=== PATIENT | female | born 1960 | race Caucasian/White ===

== ENCOUNTER → 2020-02-21 09:56 | Outpatient (CLI) | payer OTHER, SELFPAY ==
--- NOTE | 2020-02-21 09:57 | BI_ITS ---
MAMMOGRAPHY - BILATERAL SCREENING REASON FOR EXAM: Female, 59 years old. Routine annual screening examination. PERTINENT HISTORY: Non-contributory. TECHNIQUE: Digital bilateral breast benjy (3D mammographic acquisition) in the CC and MLO projections. 2-D mediolateral oblique (MLO) and craniocaudad (CC) views of both breasts were obtained. CAD: Full Field Digital Mammography with Computer Added Detection was performed. COMPARISON: Comparison is made with prior examination 09/01/2018. FINDINGS: Breast Composition: There are scattered areas of fibroglandular density. There are no dominant masses or suspicious calcifications. No other significant abnormalities are identified. There has been no significant change since the prior study. BI/SCREEN MAMM (CAD) W/BENJY BILAT IMPRESSION: Stable bilateral screening mammogram. Yearly follow-up mammogram recommended. (A) ASSESSMENT CATEGORY: BIRADS Category 1: Negative. A letter regarding these results will be sent to the patient by the facility within 30 days. Approximately 10% of breast cancers are not detected by mammography. A normal mammogram should not delay biopsy of a clinically suspicious abnormality. [id number] Electronically Signed: Rodo Lopez, at 12:12 EDT , Service support ,
[2020-02-28 08:44] LABS: HPV APTIMA, High Risk Negative (Negative)
== END ==
PROVIDERS: PCP Family Medicine; Referring Provider Obstetrics & Gynecology; Visit Provider Obstetrics & Gynecology
DX: Z12.31 Encounter for screening mammogram for malignant neoplasm of breast (principal); Z12.4 Encounter for screening for malignant neoplasm of cervix
CPT/HCPCS: 77063; 77067; 87624; 88175; G0145

== ENCOUNTER → 2021-03-10 15:39 | Outpatient (CLI) | payer OTHER, SELFPAY ==
[2020-02-21 11:01] VITALS: BMI 33.2
--- NOTE | 2021-03-10 15:41 | BI_ITS ---
MAMMOGRAPHY - BILATERAL SCREENING REASON FOR EXAM: Female, 60 years old. Routine annual screening examination. PERTINENT HISTORY: Non-contributory. TECHNIQUE: Digital bilateral breast benjy (3D mammographic acquisition) in the CC and MLO projections. 2-D mediolateral oblique (MLO) and craniocaudad (CC) views of both breasts were obtained. CAD: Full Field Digital Mammography with Computer Added Detection was performed. COMPARISON: Comparison is made with prior study dated 02/21/2020. FINDINGS: Breast Composition: There are scattered areas of fibroglandular density. There are no dominant masses or suspicious calcifications. There is a 1.3 cm x 1.2 cm well-defined nodular density in the deep slightly upper lateral aspect of the right breast. Correlation with ultrasound is recommended. No other significant abnormalities are identified. BI/SCRN MAMM (CAD)W/BENJY BILAT IMPRESSION: 1.3 cm x 1.2 cm well-defined nodular density in the deep slightly upper lateral aspect of the right breast. Correlation with ultrasound is recommended. ASSESSMENT CATEGORY: BIRADS Category 0: Incomplete. Need additional imaging evaluation. A letter regarding these results will be sent to the patient by the facility within 30 days. Approximately 10% of breast cancers are not detected by mammography. A normal mammogram should not delay biopsy of a clinically suspicious abnormality. [id number] Electronically Signed: Rodo Lopez MD at 8:56 EST , Service support ,
== END ==
PROVIDERS: PCP Family Medicine; Referring Provider Obstetrics & Gynecology; Visit Provider Obstetrics & Gynecology
DX: Z12.31 Encounter for screening mammogram for malignant neoplasm of breast (principal)
CPT/HCPCS: 77063; 77067

== ENCOUNTER → 2021-03-19 09:06 | Outpatient (CLI) | payer OTHER, SELFPAY ==
--- NOTE | 2021-03-19 09:06 | US_ITS ---
STUDY: ULTRASOUND BREAST - RIGHT REASON FOR EXAM: Female, 60 years old. Abnormal screening mammogram. TECHNIQUE: Axial and longitudinal images of the RIGHT breast were performed with a high resolution ultrasound transducer. # OF IMAGES: 14 COMPARISON: Comparison is made with prior mammogram dated 03/10/2021. FINDINGS: RIGHT Breast: There is a 0.6 cm x 1.1 cm x 0.4 cm cyst at the 9 o''clock position of the breast at 4 cm from nipple. This also evidence of a 5 mm x 7 mm x 5 mm cyst at the 9 o''clock position of the breast at 2 cm from nipple. US/Breast Limited Unilateral IMPRESSION: 2 small cysts are seen at the 9 o''clock position of the breast as described. Routine mammographic follow-up is recommended. ASSESSMENT CATEGORY: BIRADS Category 2: Benign. A letter regarding these results will be sent to the patient by the facility within 30 days. Electronically Signed: Rodo Lopez MD at 10:46 EST , Service support ,
== END ==
PROVIDERS: PCP Family Medicine; Visit Provider Obstetrics & Gynecology
DX: N60.01 Solitary cyst of right breast (principal)
CPT/HCPCS: 76642

== ENCOUNTER → 2022-03-18 | Outpatient (CLI) | payer OTHER, SELFPAY ==
--- NOTE | 2022-03-18 08:56 | BI_ITS ---
MAMMOGRAPHY - BILATERAL SCREENING REASON FOR EXAM: Female, 61 years old. Routine annual screening examination. PERTINENT HISTORY: Non-contributory. TECHNIQUE: Digital bilateral breast benjy (3D mammographic acquisition) in the CC and MLO projections. 2-D mediolateral oblique (MLO) and craniocaudad (CC) views of both breasts were obtained. CAD: Full Field Digital Mammography with Computer Added Detection was performed. COMPARISON: Comparison is made with prior examination dated 03/10/2021 and 02/21/2020. FINDINGS: Breast Composition: There are scattered areas of fibroglandular density. Stable 1.3 cm x 1.2 cm well-defined nodule in the deep slightly upper lateral aspect of the right breast. Prior sonogram demonstrated this to be a small cyst. There are no dominant masses or suspicious calcifications. No other significant abnormalities are identified. There has been no significant change since the prior study. BI/SCRN MAMM (CAD)W/BENJY BILAT IMPRESSION: Stable bilateral screening mammogram. Yearly follow-up mammogram recommended. (A) ASSESSMENT CATEGORY: BIRADS Category 2: Benign. A letter regarding these results will be sent to the patient by the facility within 30 days. Approximately 10% of breast cancers are not detected by mammography. A normal mammogram should not delay biopsy of a clinically suspicious abnormality. [id number] Electronically Signed: Rodo Lopez MD at 10:22 [facility] ,
== END | disposition home or self-care (01) ==
LOC: OPBI 08:55
PROVIDERS: PCP Family Medicine; Visit Provider Obstetrics & Gynecology
DX: Z12.31 Encounter for screening mammogram for malignant neoplasm of breast (principal)
CPT/HCPCS: 77063; 77067

== ENCOUNTER → 2023-04-08 | Outpatient (CLI) | payer OTHER, SELFPAY ==
--- NOTE | 2023-04-08 13:56 | BI_ITS ---
MAMMOGRAPHY - BILATERAL SCREENING REASON FOR EXAM: Female, 62 years old. Routine annual screening examination. PERTINENT HISTORY: Non-contributory. TECHNIQUE: Digital bilateral breast benjy (3D mammographic acquisition) in the CC and MLO projections. 2-D mediolateral oblique (MLO) and craniocaudad (CC) views of both breasts were obtained. CAD: Full Field Digital Mammography with Computer Added Detection was performed. COMPARISON: Comparison is made with prior study dated March 18, 2022 and March 10, 2021. FINDINGS: Breast Composition: There are scattered areas of fibroglandular density. There are no dominant masses or suspicious calcifications. Stable 1.2 cm x 1.3 cm well-defined nodule in the deep slightly upper lateral aspect of the right breast. Prior sonogram demonstrated this to be a small cyst. Stable fat-containing bilateral axillary lymph nodes. No other significant abnormalities are identified. There has been no significant change since the prior study. BI/SCRN MAMM (CAD)W/BENJY BILAT IMPRESSION: Stable bilateral screening mammogram. Yearly follow-up mammogram recommended. (A) ASSESSMENT CATEGORY: BIRADS Category 2: Benign. A letter regarding these results will be sent to the patient by the facility within 30 days. Approximately 10% of breast cancers are not detected by mammography. A normal mammogram should not delay biopsy of a clinically suspicious abnormality. [id number] Electronically Signed: Rodo Lopez MD at 15:12 EST ,
== END | disposition home or self-care (01) ==
LOC: OPBI 13:52
PROVIDERS: PCP Family Medicine; Referring Provider Obstetrics & Gynecology; Visit Provider Obstetrics & Gynecology
DX: Z12.31 Encounter for screening mammogram for malignant neoplasm of breast (principal)
CPT/HCPCS: 77063; 77067

== ENCOUNTER → 2024-04-20 | Outpatient (CLI) | payer OTHER, SELFPAY ==
--- NOTE | 2024-04-20 09:41 | BI_ITS ---
MAMMOGRAPHY - BILATERAL SCREENING REASON FOR EXAM: Female, 63 years old. Routine annual screening examination. PERTINENT HISTORY: Non-contributory. TECHNIQUE: Digital bilateral breast benjy (3D mammographic acquisition) in the CC and MLO projections. 2-D mediolateral oblique (MLO) and craniocaudad (CC) views of both breasts were obtained. CAD: Full Field Digital Mammography with Computer Added Detection was performed. COMPARISON: Comparison is made with prior study dated April 08, 2023 and March 18, 2022. FINDINGS: Breast Composition: There are scattered areas of fibroglandular density. There are no dominant masses or suspicious calcifications. Stable 1 cm x 1.2 cm well-defined nodule in the deep slightly upper lateral aspect of the right breast. No other significant abnormalities are identified. There has been no significant change since the prior study. BI/SCRN MAMM (CAD)W/BENJY BILAT IMPRESSION: Stable bilateral screening mammogram. Yearly follow-up mammogram recommended. (A) ASSESSMENT CATEGORY: BIRADS Category 2: Benign. A letter regarding these results will be sent to the patient by the facility within 30 days. Approximately 10% of breast cancers are not detected by mammography. A normal mammogram should not delay biopsy of a clinically suspicious abnormality. [id number] Electronically Signed: Rodo Lopez MD at 11:33 EST ,
[2024-04-29 10:06] LABS: HPV APTIMA, High Risk Negative (Negative)
== END | disposition home or self-care (01) ==
LOC: OPBI 09:41
PROVIDERS: PCP Family Medicine; Referring Provider Obstetrics & Gynecology; Visit Provider Obstetrics & Gynecology
DX: Z12.31 Encounter for screening mammogram for malignant neoplasm of breast (principal)
CPT/HCPCS: 77063; 77067; 87624; 88175; G0145

== ENCOUNTER 2024-08-15 05:54 | Day surgery (SDC) | payer BC, SELFPAY ==
[2024-08-15] VITALS (8 sets, daily range): BP systolic 121–148; BP diastolic 46–96; PULSE 64–86; RESP 16; TEMP 36.5–36.8; O2SAT 96–98; BMI 33.8
--- NOTE | 2024-08-15 06:37 | PCM.PRE.AN2 ---
ASA Classification* ASA Classification ASA Classification: 2 Assessment & Plan Anesthesia* Anesthesia Assessment Anesthesia Assessment: Discussed sedation and/or anesthesia options, risks, benefits, and alternatives with patient/parents/legal guardian/POA. Questions invited. The patient/parents/legal guardian/POA seems to understand and agrees to proceed with anesthesia plan. Reviewed the physical assessment, medical history, allergy history and patient home medications list prior to surgery/procedure/anesthetic and documented any changes. Performed airway and anesthesia risk assessments. Anesthesia Type Anesthesia Type: MAC Anesthesia Focused Assessment* Temperature: 98.3 F Pulse Rate: 86 Blood Pressure: 138/96 Respiratory Rate: 16 Pulse Ox: 96 Airway Assessment Mouth opens: >3 cm Mallampati Score: II Focused Labs Anesthesia Preop lab: CBC CHEMISTRY COAG Pre-Assessment Diagnosis/Proposed Procedure Planned Operative Procedure(s): Colonoscopy - Open Access Anesthesia History Anesthesia History - training director: Anesthesia History - training director Hx Hospitalization No 08/10/24 15:14 Any Problems With Anesthesia No 08/10/24 15:14 Cholinesterase deficiency No 08/10/24 15:14 You/Your Family Experience No 08/10/24 15:14 fever (hyperthermia) with Relationship Recent Exposure to Contagious No 08/15/24 06:18 Disease Does patient have nerve No 08/10/24 15:14 stimulator Patient instructed to have device shut off --Does patient have Pacemaker No 08/15/24 06:18 or ICD? When Was Last Pacemaker Check QUESTION #4 FULL TEXT: You/Your Family Experience fever (hyperthermia) with Anesthesia Last Oral Intake Last Oral intake: Last Oral Intake NPO since 03:00 08/15/24 06:18 Meds taken in AM with sips of No 08/15/24 06:18 water? Meds patient instructed to take am of surgery PONV PONV - training director: PONV - training director Female Yes 08/10/24 15:14 HX of Motion Sickness No 08/10/24 15:14 HX of N/V After Surgery No 08/10/24 15:14 Non-Smoker Yes 08/10/24 15:14 Duration of Surgery greater No 08/10/24 15:14 than 60 minutes Number of Risk Factors 2 08/10/24 15:14 PONV Score Moderate Risk 08/10/24 15:14 Height & Weight Height & Weight: Anesthesia: Height & Weight Height 5 ft 7 in 08/15/24 06:18 Weight: 98 kg 08/15/24 06:18 Body Mass Index (BMI) 33.8 08/15/24 06:18 Respiratory Assessment Respiratory Assessment - training director: Respiratory Tract Infection Hx - training director Hx Respiratory Tract Infection No 08/10/24 15:14 STOP Sleep Apnea STOP Sleep Apnea - training director: STOP Sleep Apnea - training director Hx Hypertension Yes 08/10/24 15:14 Hx Sleep Apnea No 08/10/24 15:14 CPAP BIPAP Do you snore loudly (louder No 08/10/24 15:14 than talking or can be heard Do you often feel tired/ No 08/10/24 15:14 fatigued/ sleepy during daytime? Has anyone observed you stop No 08/10/24 15:14 breathing during sleep? STOP Results Negative 08/10/24 15:14 QUESTION #5 FULL TEXT : Do you snore loudly (louder than talking or can be heard through closed doors)? 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 Specify any problems Hx of Preganancy in last 3 No 08/10/24 15:14 Months Nurse Filling Out Transfusion JZOLLINGE 08/10/24 15:14 & Questions: Date: 08/10/24 08/10/24 15:14 Time: 15:16 08/10/24 15:14 Patient unable to answer at this time (ie. confused, unrespo /Reproduction History /Reproductive History - training director: /Reproductive Hx- training director Hx Now No 08/10/24 15:14 Gestational Age (in weeks): EDC: Hx Hx Para Hx Section SAB No 08/10/24 15:14 PFSH Medical History Wears glasses Heartburn Non-smoker Pre-diabetes Hypertension Vitamin D deficiency Thyroid cancer Asthma Home Medications ?Medication ?Instructions ?Recorded ?Last Taken ?Type albuterol sulfate 90 mcg/actuation 2 puff inhalation Q6H PRN 02/21/20 08/13/24 History aerosol inhaler (Proventil HFA) shortness of breath or wheezing calcium carbonate 600 mg PO DAILY 02/21/20 08/14/24 History cetirizine 10 mg tablet (Zyrtec) 10 mg PO DAILY 02/21/20 08/14/24 History cholecalciferol (vitamin D3) 125 125 mcg PO DAILY 02/21/20 08/14/24 History mcg (5,000 unit) capsule levothyroxine 100 mcg tablet 100 mcg PO DAILY 02/21/20 08/14/24 History vitamin E 268 mg (400 unit) capsule 400 unit PO DAILY 02/21/20 08/14/24 History lisinopril 10 1 tab PO DAILY 03/18/22 08/14/24 History mg-hydrochlorothiazide 12.5 mg tablet ascorbic acid (vitamin C) 500 mg 1,000 mg PO 04/08/23 08/14/24 History capsule Lactobacillus acidophilus 600 mg PO QDAY 07/12/24 08/14/24 History fluticasone propionate 50 1 spray intranasal QDAY 07/12/24 Unknown History mcg/actuation nasal spray,suspension (Allergy Relief (fluticasone)) magnesium glycinate 100 mg PO QDAY 07/12/24 08/12/24 History omega-3 fatty acids-fish oil 360 1 cap PO QDAY 07/12/24 Unknown History mg-1,200 mg capsule (Fish Oil) Allergy/AdvReac Type Severity Reaction Status Date / Time Penicillins Allergy Mild hives, Verified 08/15/24 06:15 swelling meperidine (From Demerol) AdvReac Mild TROUBLE Verified 08/15/24 06:15 COMING OUT OF IT Family History Mother Hypertension Father Hypertension Diabetes Surgical History Hx of colonoscopy S/P partial thyroidectomy S/P tonsillectomy Social History household members: spouse current occupational status: employed Smoking Status: Never smoker alcohol intake: current details: occasionally substance use type: does not use caffeine: Yes what type of physical activity do you participate in: none seatbelt use: always do you feel safe at home: Yes additional social history: -[employer] Patient works at [employer] Review of Systems (Anesthesia) ROS Narrative System reviewed and no additional complaints, except as documented.
--- NOTE | 2024-08-15 06:47 | PCM.HP.STD ---
HPI - General General Date of Admission: 08/15/24 Date of Service: 08/15/24 Chief Complaint: Screening colonoscopy HPI Narrative AUTUMN AGUIRRE, is a 63 F who presents for screening colonoscopy. She had a colonoscopy proximately 10 years ago and it was normal. She is not have any abdominal pain, cramping, chest pain or shortness of breath. Overall she is in very good health. [facility]LY [facility] Medical History Wears glasses Heartburn Non-smoker Pre-diabetes Hypertension Vitamin D deficiency Thyroid cancer Asthma Home Medications ?Medication ?Instructions ?Recorded ?Last Taken ?Type albuterol sulfate 90 mcg/actuation 2 puff inhalation Q6H PRN 02/21/20 08/13/24 History aerosol inhaler (Proventil HFA) shortness of breath or wheezing calcium carbonate 600 mg PO DAILY 02/21/20 08/14/24 History cetirizine 10 mg tablet (Zyrtec) 10 mg PO DAILY 02/21/20 08/14/24 History cholecalciferol (vitamin D3) 125 125 mcg PO DAILY 02/21/20 08/14/24 History mcg (5,000 unit) capsule levothyroxine 100 mcg tablet 100 mcg PO DAILY 02/21/20 08/14/24 History vitamin E 268 mg (400 unit) capsule 400 unit PO DAILY 02/21/20 08/14/24 History lisinopril 10 1 tab PO DAILY 03/18/22 08/14/24 History mg-hydrochlorothiazide 12.5 mg tablet ascorbic acid (vitamin C) 500 mg 1,000 mg PO 04/08/23 08/14/24 History capsule Lactobacillus acidophilus 600 mg PO QDAY 07/12/24 08/14/24 History fluticasone propionate 50 1 spray intranasal QDAY 07/12/24 Unknown History mcg/actuation nasal spray,suspension (Allergy Relief (fluticasone)) magnesium glycinate 100 mg PO QDAY 07/12/24 08/12/24 History omega-3 fatty acids-fish oil 360 1 cap PO QDAY 07/12/24 Unknown History mg-1,200 mg capsule (Fish Oil) Allergy/AdvReac Type Severity Reaction Status Date / Time Penicillins Allergy Mild hives, Verified 08/15/24 06:15 swelling meperidine (From Demerol) AdvReac Mild TROUBLE Verified 08/15/24 06:15 COMING OUT OF IT Family History Mother Hypertension Father Hypertension Diabetes Surgical History Hx of colonoscopy S/P partial thyroidectomy S/P tonsillectomy Social History household members: spouse current occupational status: employed Smoking Status: Never smoker alcohol intake: current details: occasionally substance use type: does not use caffeine: Yes what type of physical activity do you participate in: none seatbelt use: always do you feel safe at home: Yes additional social history: -[employer] Patient works at [employer] Constitutional Constitutional: Denies fatigue, fever(s), poor appetite, weight gain or weight loss Gastrointestinal Gastrointestinal: Denies belching, bloating, change in bowel habits, change in stool character, chewing difficulty, coffee ground emesis, constipation, cramping, diarrhea, dyspepsia, dysphagia, early satiety, excessive flatus, fecal incontinence, heartburn, hematemesis, hematochezia, hemorrhoids, loose stools, melena, nausea, odynophagia, rectal bleeding, tenesmus, vomiting or weight changes Vital Signs Vital Signs Vital Signs: 08/15/24 06:18 08/15/24 06:18 08/15/24 06:37 Temperature 98.3 F 98.3 F Temperature Source Temporal Pulse Rate 86 86 Respiratory Rate 16 16 Respiratory Pattern Normal Blood Pressure 138/96 H 138/96 H Blood Pressure Mean 110 Blood Pressure Source Monitor Blood Pressure Position Sitting Blood Pressure Location Left Arm Pulse Ox 96 96 Oxygen Delivery Method Room Air Weight Weight: 216 lb 0.848 oz Body Mass Index (BMI) 33.8 Physical Exam Const alert, oriented x3, no apparent distress and healthy appearing General Appearance: cooperative GI normal to inspection, nondistended, normoactive bowel sounds, soft to palpation, non-tender and non-distended Percussion: normal to percussion Rectal Exam: deferred Assessment & Plan Assessment/Plan (1) Encounter for screening for malignant neoplasm of colon: PLAN: She was Splane alternatives, benefits, risk including not withstanding bleeding, infection, sepsis, perforation, need for emergent surgery and . She will have an ASA of 3.
--- NOTE | 2024-08-15 07:43 | PCM.POST.ANE ---
Anesthesia: Postop Eval I Current Vital Signs Temperature: 97.8 F Pulse Rate: 68 Blood Pressure: 148/86 Respiratory Rate: 16 Pulse Ox: 96 Oxygen Delivery Method: Room Air Assessment Airway patent: Yes Spontaneous unlabored respirations: Yes Mental status: Asleep nausea: No Vomiting: No Anesthesia Complication: No Fluid Hydration Crystalloid volume administer (ml): 50 Total IV fluid infused: 50 Progress Note Anesthesia document: Postop Eval 1 completed: Yes
--- NOTE | 2024-08-15 08:01 | OP.COLON_ITS ---
Patient Name: Rekha Ryder Procedure Date: 08/15/2024 7:06 AM Date of : 1960 Age: 63 Procedure: Colonoscopy Indications: Screening for colorectal malignant neoplasm Providers: Kimo Barrera DO Referring MD: Doyle Taylor Medicines: Monitored Anesthesia Care Patient Profile: This is a 63 year old female. Refer to note in patient chart for documentation of history and physical. Last Colonoscopy: more than 10 years ago. Complications: No immediate complications. Procedure: Pre-Anesthesia Assessment: - Prior to the procedure, a History and Physical was performed, and patient medications and allergies were reviewed. The patient is competent. The risks and benefits of the procedure and the sedation options and risks were discussed with the patient. All questions were answered and informed consent was obtained. Patient identification and proposed procedure were verified by the physician in the pre-procedure area. Mental Status Examination: alert and oriented. Airway Examination: normal oropharyngeal airway and neck mobility. Respiratory Examination: clear to auscultation. CV Examination: normal. Prophylactic Antibiotics: The patient does not require prophylactic antibiotics. Prior Anticoagulants: The patient has taken no anticoagulant or antiplatelet agents except for NSAID medication. ASA Grade Assessment: II - A patient with mild systemic disease. After reviewing the risks and benefits, the patient was deemed in satisfactory condition to undergo the procedure. The anesthesia plan was to use monitored anesthesia care (MAC). Immediately prior to administration of medications, the patient was re-assessed for adequacy to receive sedatives. The heart rate, respiratory rate, oxygen saturations, blood pressure, adequacy of pulmonary ventilation, and response to care were monitored throughout the procedure. The physical status of the patient was re-assessed after the procedure. After I obtained informed consent, the scope was passed under direct vision. Throughout the procedure, the patient's blood pressure, pulse, and oxygen saturations were monitored continuously. The Colonoscope was introduced through the anus and advanced to the cecum, identified by appendiceal orifice and ileocecal valve. The colonoscopy was performed without difficulty. The patient tolerated the procedure well. The quality of the bowel preparation was adequate. The terminal ileum, ileocecal valve, appendiceal orifice, and rectum were photographed. Scope In: 7:17:26 AM Scope Withdrawal Time 0 hours 8 minutes 45 seconds Scope Out: 7:35:21 AM Total Procedure Duration Time 0 hours 17 minutes 55 seconds Findings: The perianal and digital rectal examinations were normal. A few small and large-mouthed diverticula were found in the recto-sigmoid colon and sigmoid colon. Impression: - Diverticulosis in the recto-sigmoid colon and in the sigmoid colon. - No specimens collected. Recommendation: - Discharge patient to home. - Resume previous diet. - Continue present medications. - Repeat colonoscopy in 10 years for screening purposes. Procedure Code(s): --- Professional --- G0121, Colorectal cancer screening; colonoscopy on individual not meeting criteria for high risk CPT copyright 2021 [employer]. All rights reserved. The codes documented in this report are preliminary and upon alley worker review may be revised to meet current compliance requirements. Kimo Barrera DO 08/15/2024 8:00:39 AM This report has been signed electronically. Number of Addenda: 0 Note Initiated On: 08/15/2024 7:06 AM
--- NOTE | 2024-08-15 08:01 | OP.CCLET_ITS ---
08/15/2024 Doyle Taylor Re : Colonoscopy procedure for Rekha Ryder Dear Gretel This procedure was performed on Thursday, August 15, 2024. My impressions and recommendations are as follows: Impressions : - Diverticulosis in the recto-sigmoid colon and in the sigmoid colon. - No specimens collected. Recommendations : - Discharge patient to home. - Resume previous diet. - Continue present medications. - Repeat colonoscopy in 10 years for screening purposes. My findings are described in the full procedure note, which is enclosed. If I can be of further assistance, please feel free to contact me at . Sincerely, Kimo Barrera, 08/15/2024 8:00:39 AM This report has been signed electronically.
--- NOTE | 2024-08-15 09:16 | PCM.POSTANE2 ---
Anesthesia Postop Eval I Sum Postop Eval Completion status Anesthesia document: Postop Eval 1 completed: Yes Anesthesia Postop Eval I Summary Anesthesia Postop Eval I Summary: Anesthesia Postop Eval I: Assessment Summary Airway patent Yes 08/15/24 07:44 [email or web address] Spontaneous unlabored Yes 08/15/24 07:44 [email or web address] respirations Mental status Asleep 08/15/24 07:44 [email or web address] nausea No 08/15/24 07:44 [email or web address] Vomiting No 08/15/24 07:44 [email or web address] Anesthesia Postop Eval I: Fluid Summary Crystalloid volume administer 50 08/15/24 07:44 [email or web address] (ml) Colloids volume administered ( ml) Blood Product volume administered (ml) Total IV fluid infused 50 08/15/24 07:44 [email or web address] Anesthesia Postop Eval I: Summary Notes Anesthesia Complication No 08/15/24 07:44 [email or web address] Anesthesia Complication Comment: Post-operative progress note Anesthesia: Postop Eval II Evaluation Mental status: Awake Pain Level: 0 nausea: No Vomiting: No
== END 2024-08-15 08:34 | disposition home or self-care (01) ==
LOC: EN 05:54 → AC 05:57
PROVIDERS: PCP Physician Assistant; Referring Provider Physician Assistant; Visit Provider Internal Medicine Gastroenterology
PROC: 0DJD8ZZ Inspection of Lower Intestinal Tract, Via Natural or Artificial Opening Endoscopic (ICD-10-PCS; CPT 45378; principal; 2024-08-15 06:55)
DX: Z12.11 Encounter for screening for malignant neoplasm of colon (principal); K57.30 Diverticulosis of large intestine without perforation or abscess without bleeding; I10 Essential (primary) hypertension; Z85.850 Personal history of malignant neoplasm of thyroid; J45.909 Unspecified asthma, uncomplicated
CPT/HCPCS: G0121; A4216; J2405